=== PATIENT | male | born 1985 | race Caucasian/White ===

== ENCOUNTER 2019-09-28 12:36 | Emergency (ER) | payer MEDICAID ==
[~2019-09-28] VITALS: Ht 170.2 cm; Wt 114.8 kg
--- NOTE | 2019-09-28 13:06 | NUR ---
[facility]ACHERY FROM A [facility]OTEL WHERE PT IS STAYING. TO ER BED 7. AAOX4,. NOT IN RESP DISTRESS. BROUGHT IN FOR R ANKLE PAIN AND SWELLING S/P TRIPPING OFF THE STEPS OF STAIRS. ROM IS LIMITED D/T PAIN. WAS AT THE BEDSIDE FOR EVAL. ORDERS RECEIVED. XRAY AT THE BEDSIDE
--- NOTE | 2019-09-28 14:29 | NUR ---
EMT AT BEDSIDE FOR SPLINTING
--- NOTE | 2019-09-28 14:33 | NUR ---
PT DISPENSED WITH CRUTCHES. GAIT TRAINING DONE. PT RETURNED DEMO.
--- NOTE | 2019-09-28 14:55 | NUR ---
PT'S MOTHER CALLED PER PT REQUEST TO HAVE HIM PICKED UP. SPOKE WITH MOTHER AND WILL HOG RINGER HIS SON.
--- NOTE | 2019-09-28 15:00 | NUR ---
Patient discharged to home in stable condition. Written and verbal after care instructions given. Patient verbalizes understanding of instruction. Pt wheeled out to waiting room, waiting for mother to pick him up. Homeless waiver signed by the patient.
[2019-09-28 15:04] VITALS: BP 157/92
--- NOTE | 2019-09-28 15:16 | NUR ---
PT MOTHER CALLED BACK AND SAID THAT HE DOES NOT WANT TO [employer] OPER[employer] HIS SON.
--- NOTE | 2019-09-28 16:33 | NUR ---
SPOKE WITH [facility] [employer] REGARDING PT GOING BACK TO [facility]. AWAITING FOR CONFIRMATION FOR TRANSFER BACK
--- NOTE | 2019-09-28 16:48 | NUR ---
CASE MANAGEMENT CALLED, SPOKE WITH STEFANIE, ASKED FOR HELP IN PLACEMENT SINCE HELPING HAND IN CHARGE OF THE [facility] IS REFUSING TO TAKE HIM BACK.
--- NOTE | 2019-09-28 17:17 | NUR ---
[facility] [employer] (ISMAEL OR ASHLEY) [phone]
--- NOTE | 2019-09-28 17:25 | NUR ---
ANISHA REYES WILL TRANSPORT PT TO [facility] [id number] [facility]. ETA IS 1830 PER MARILU. DIRSECTOR'S NAME IS KEDAR.
== END 2019-09-28 15:04 | disposition home or self-care (01) ==
LOC: ER 12:43
DX: S82.51XA Displaced fracture of medial malleolus of right tibia, initial encounter for closed fracture (principal); S82.491A Other fracture of shaft of right fibula, initial encounter for closed fracture; J45.909 Unspecified asthma, uncomplicated; W01.0XXA Fall on same level from slipping, tripping and stumbling without subsequent striking against object, initial encounter; Y93.89 Activity, other specified; Y92.59 Other trade areas as the place of occurrence of the external cause; Y99.8 Other external cause status
CPT/HCPCS: 73610-TC